=== PATIENT | male | born 1975 | race Caucasian/White ===

== ENCOUNTER 2022-11-12 09:03 | Outpatient (CLI) | payer OTHER ==
[2022-11-12] MEDS ORDERED: Iopamidol 370 76% 100 ML VIAL ONE (14:25)
== END 2022-11-12 09:04 | disposition home or self-care (01) ==
LOC: BURCT 09:03
PROVIDERS: ATTEND Family Medicine
DX: C07 Malignant neoplasm of parotid gland (principal)
CPT/HCPCS: 70492; Q9967